=== PATIENT | female | born 1930 | race Hispanic/Latino ===

== ENCOUNTER 2017-03-06 19:34 | Emergency (ER) | payer MEDICARE ==
[2017-03-06 20:07] VITALS: BP 159/72; PULSE 81; RESP 18; TEMP 99.2; O2SAT 91
[2017-03-06] MEDS ORDERED: Sodium Chloride 0.9% 1,000 ML IV STA (20:11)
[2017-03-06] MEDS ORDERED: Albuterol-Ipratrop 3 mg / 0.5 (3 ml) UD INH STA ×3 (21:48→21:49)
[2017-03-06 22:03] LABS: BASO # 0.1 K/uL (0.0-0.2); BASO % 0.8 % (0.0-2.0); EOS % 0.5 % (0.0-4.0); HEMATOCRIT 35.5 % (34.0-47.0); LYMPH # 0.6 K/uL (1.0-4.3); LYMPH % 8.3 % (20.0-40.0); MEAN CELL VOLUME 90.1 fl (81.0-99.0); MEAN CORPUSCULAR HEMOGLOBIN 29.7 pg (27.0-31.0); MEAN CORPUSCULAR HGB CONC 32.9 g/dL (33.0-37.0); MEAN PLATELET VOLUME 9.1 fl (7.2-11.7); MONO # 0.4 K/uL (0.0-0.8); MONO % 5.4 % (0.0-10.0); NRBC % 0.1 % (0.0-0.0); PLATELET COUNT 178 K/uL (130-400); RED CELL DISTRIBUTION WIDTH 14.1 % (11.5-14.5)
[2017-03-06 22:20] LABS: ALB/GLOB RATIO 1.3 (1.0-2.1); BILIRUBIN,TOTAL 0.8 mg/dl (0.2-1.3); CALCIUM 9.6 mg/dL (8.4-10.2); TOTAL PROTEIN 7.8 G/DL (6.3-8.2)
[2017-03-06 22:37] LABS: POTASSIUM 3.7 MMOL/L (3.6-5.0)
--- NOTE | 2017-03-06 22:44 | ED PDOC ---
HPI: General Adult Time Seen by Provider: 03/06/17 20:09 Chief Complaint (Nursing): GI Problem Chief Complaint (Provider): GI Problem History Per: Patient History/Exam Limitations: no limitations Onset/Duration Of Symptoms: Days (x 2) Current Symptoms Are (Timing): Still Present Additional Complaint(s): Tasha is 87 year old female, with a past medical history of hypertension , who presents to the emergency department complaining of cough, nausea and vomiting for 2 days. Patient reports she vomitted non-bloody, non-bilious emesis. Patient reports cough with yellow-green phlegm associated with diarrhea , and nasal congestion. Admits to not having flu vaccine this year. Denies any associated fever or complaints of chills. PMD: Stanley Campos Past Medical History Reviewed: Historical Data, Nursing Documentation, Vital Signs Vital Signs: Last Vital Signs Temp 99.2 F 03/06/17 20:03 Pulse 81 03/06/17 20:03 Resp 18 03/06/17 20:03 BP 159/72 H 03/06/17 20:03 Pulse Ox 91 L 03/06/17 23:05 - Medical History PMH: Cardia Arrhythmia, HTN, Hypercholesterolemia - Surgical History Surgical History: Cholecystectomy - Family History Family History: States: No Known Family Hx - Social History Current smoker - smoking cessation education provided: No Alcohol: None Drugs: Denies - Home Medications Home Medications: Ambulatory Orders Medication Instructions Recorded Tramadol Hydrochloride [Tramadol 50 mg PO Q8 PRN #15 tab 03/06/14 HCl] Albuterol HFA [Ventolin HFA 90 1 - 2 puff IH Q6 PRN #1 inhaler 03/06/17 mcg/actuation (8 g)] Benzonatate [Tessalon Perle] 100 mg PO TID PRN #15 capsule 03/06/17 Ondansetron ODT [Zofran ODT] 4 mg PO Q6H PRN #16 odt 03/06/17 levoFLOXacin [Levaquin] 500 mg PO DAILY #10 tab 03/06/17 - Allergies Allergies/Adverse Reactions: Allergies Allergy/AdvReac Type Severity Reaction Status Date / Time No Known Allergies Allergy Verified 02/19/15 12:47 Review of Systems ROS Statement: Except As Marked, All Systems Reviewed And Found Negative Constitutional: Negative for: Fever, Chills ENT: Positive for: Nose Congestion Respiratory: Positive for: Cough, Sputum (Yellow-green) Gastrointestinal: Positive for: Vomiting (non-bloody, non-bilious emesis), Diarrhea Physical Exam - Reviewed Nursing Documentation Reviewed: Yes Vital Signs Reviewed: Yes - Physical Exam Appears: Positive for: No Acute Distress Head Exam: Positive for: ATRAUMATIC, NORMAL INSPECTION, NORMOCEPHALIC Respiratory: Positive for: Wheezing (Bilateral Expiratory) Neurologic/Psych: Positive for: Alert, Oriented - Laboratory Results Result Diagrams: 03/06/17 21:37 03/06/17 21:37 - ECG O2 Sat by Pulse Oximetry: 91 (Low) Pulse Ox Interpretation: Abnormal - Radiology X-Ray: Interpreted by Me X-Ray Interpretation: No Acute Disease Medical Decision Making Medical Decision Making: Time: 20:11 Impression: 87 year old female presents with cough, nasal congestion and vomiting Plan: - EKG - CMP - Lactic Acic, Plasma, - Lipase - CBC - Sodium Chloride 0.9% 1,000 ml IV 250 mls/hr - Zofran Inj - Blood Culture - Influenza A B Time: 21:48 - Peak Flow Pre/Post Treatment - Peak Flow Pre/Post Treatment - Peak Flow Pre/Post Treatment - Duoneb 3 mg/05 mg (3 ml) UD - Duoneb 3 mg/05 mg (3 ml) UD - Duoneb 3 mg/05 mg (3 ml) UD Time: 22:51 Chest X-Ray result shows no acute disease and lab results shows no clinical abnormalities. Patient reports improvement. Scribe Attestation: Documented by Calos Draper, acting as a scribe for Jeronimo Sidhu MD Provider Scribe Attestation: All medical record entries made by the Scribe were at my direction and personally dictated by me. I have reviewed the chart and agree that the record accurately reflects my personal performance of the history, physical exam, medical decision making, and the department course for this patient. I have also personally directed, reviewed, and agree with the discharge instructions and disposition. Disposition - Clinical Impression Clinical Impression: Acute bronchitis - Patient ED Disposition Is Patient to be Admitted: No - Disposition Referrals: Stanley Campos MD [Family Provider] - Disposition: Routine/Home Disposition Time: 22:51 Condition: STABLE Prescriptions: Albuterol HFA [Ventolin HFA 90 mcg/actuation (8 g)] 1 - 2 puff IH Q6 PRN #1 inhaler PRN Reason: Shortness Of Breath Benzonatate [Tessalon Perle] 100 mg PO TID PRN #15 capsule PRN Reason: Cough levoFLOXacin [Levaquin] 500 mg PO DAILY #10 tab Ondansetron ODT [Zofran ODT] 4 mg PO Q6H PRN #16 odt PRN Reason: Nausea/Vomiting Instructions: Acute Bronchitis (ED) Forms: [employer] ([place])
[2017-03-06] MEDS ORDERED: levoFLOXacin 500 MG TAB PO STA (22:45)
[2017-03-06] MEDS ORDERED: Albuterol-Ipratrop 3 mg / 0.5 (3 ml) UD ONE (22:51)
[2017-03-07 01:43] LABS: NEUTROPHIL 88 % (42-75); TOTAL CELLS COUNTED 100
--- NOTE | 2017-03-07 08:36 | RAD ---
HISTORY: cough COMPARISON: No prior. FINDINGS: LUNGS: No active pulmonary disease. PLEURA: No significant pleural effusion identified, no pneumothorax apparent. CARDIOVASCULAR: Borderline cardiomegaly. No pulmonary vascular derangement identified. OSSEOUS STRUCTURES: No significant abnormalities. VISUALIZED UPPER ABDOMEN: Normal. OTHER FINDINGS: None. IMPRESSION: No acute infiltrate bilaterally or pleural effusion. Cardiac size is borderline enlarged. No pulmonary vascular derangement identified.
--- NOTE | 2017-03-08 11:33 | CARD ---
APPROVED REPORT EKG Measurement Heart [id number] OR [id number] <Conclusion> Normal sinus rhythm Normal ECG
== END 2017-03-06 23:34 | disposition home or self-care (01) ==
LOC: H.ER 19:34
DX: J20.9 Acute bronchitis, unspecified (principal); I10 Essential (primary) hypertension; E78.00 Pure hypercholesterolemia, unspecified
CPT/HCPCS: 71010; 80053; 83605; 83690; 85025; 87040; 87804; 96374; 99284; J2405; J7040